=== PATIENT | female | born 1945 | race Two or more races ===

== ENCOUNTER 2020-02-08 10:49 | Outpatient (CLI) | payer OTHER | END 2020-02-08 11:03 | disposition home or self-care (01) | LOC: TOM 10:49 | PROVIDERS: ATTEND Neurological Surgery | DX: M47.16 Other spondylosis with myelopathy, lumbar region (principal) ==

== ENCOUNTER 2020-02-13 08:31 | Outpatient (CLI) | payer OTHER | END 2020-02-13 08:32 | disposition home or self-care (01) | LOC: RAD 08:31 | PROVIDERS: ATTEND Neurological Surgery | DX: M47.16 Other spondylosis with myelopathy, lumbar region (principal) ==